=== PATIENT | male | born 1980 | race Caucasian/White ===

== ENCOUNTER 2017-09-30 13:45 | Emergency (ER) | payer BC ==
[~2017-09-30] VITALS: Ht 172.7 cm; Wt 100.0 kg
[2017-09-30 14:29] VITALS: BP 128/92; PULSE 131; RESP 18; TEMP 98.4; O2SAT 96
[2017-09-30 16:44] LABS: BACTERIA, URINE RARE /hpf; BILIRUBIN, URINE NEG (NEG); BLOOD, URINE TRACE (NEG); GLUCOSE,URINE NEG (NEG); HYALINE CAST, URINE 5 /lpf (RARE); KETONE, URINE 40 mg/dL (NEG); MUCUS URINE FEW /lpf (OCC); NITRITE,URINE NEG (NEG); PH, URINE 5.5 (5.0-8.5); URINE COLOR YELLOW (YELLW/STRAW); URINE LEUKOCYTE ESTERASE NEG (NEG)
[2017-09-30 18:57] VITALS: BP 135/82; PULSE 120; RESP 17; O2SAT 98
[2017-09-30] MEDS ORDERED: SODIUM CHLOR 0.9% 1000 ML INJ 1,000 ML IV ONE (19:30)
[2017-09-30] MEDS ORDERED: ONDANSETRON HCL 4 MG/2 ML VIAL IV ONE (19:30)
[2017-09-30] MEDS ORDERED: LORazepam 2 MG/ML VIAL IV PUSH ONE (19:30)
--- NOTE | 2017-09-30 19:30 | PD ---
HPI Chief Complaint: Alcohol/Drug Intoxication Time Seen by Provider: 18:43 Travel History International Travel<30 days: No Contact w/Intl Traveler<30days: No Traveled to known affect area: No History of Present Illness HPI This patient is an alcohol binger about once a week. He does not drink every day. He is trying to cut back. He also takes Valium twice a day for the last month for anxiety prescribed by his physician. He feels nauseous and shaky. Severity is moderate. Duration 2 days. No alleviating factors. Symptoms exacerbated by his anxiety and alcohol abuse. Denies illicit drug use or any intentional overdose. He is not feeling suicidal. PFS Past Medical History Atrial Fibrillation: Yes Anxiety: Yes Depression: Yes Diminished Hearing: No Hypertension: Yes ?: Not Past Surgical History Surgical History: No Previous Surgery Social History Alcohol Use: Yes (last drink 1100) Tobacco Use: Yes (dip) Substance Use: No Allergies-Medications (Allergen,Severity, Reaction): Coded Allergies: azithromycin (Verified Allergy, Unknown, Anaphylaxis, 09/30/17) Review of Systems General / Constitutional: No: Fever Eyes: No: Visual changes HENT: No: Headaches Cardiovascular: Positive: Tachycardia, No: Chest Pain or Discomfort Respiratory: No: Shortness of Breath Gastrointestinal: No: Abdominal Pain Genitourinary: No: Dysuria Musculoskeletal: Positive: Weakness, No: Pain Skin: No Rash Neurologic: Positive: Weakness, Tremor Psychiatric: Positive: Anxiety, No: Depression Endocrine: No: Polydipsia Hematologic/Lymphatic: No: Easy Bruising Physical Exam Narrative GENERAL: Well-nourished, well-developed patient with nausea and weakness . SKIN: Focused skin assessment reveals no rash and nodules. Skin is Warm and dry. HEAD: Atraumatic. Normocephalic. EYES: Pupils equal and round. No scleral icterus. No injection or drainage. ENT: No nasal bleeding or discharge. Mucous membranes pink and moist. NECK: Trachea midline. No JVD. CARDIOVASCULAR: Regular rate and rhythm. No murmur appreciated. Tachycardic at 120 RESPIRATORY: No accessory muscle use. Clear to auscultation. Breath sounds equal bilaterally. GASTROINTESTINAL: Abdomen soft, non-tender, nondistended. Hepatic and splenic margins not palpable. MUSCULOSKELETAL: No obvious deformities. No clubbing. No cyanosis. No edema. NEUROLOGICAL: Awake and alert. No obvious cranial nerve deficits. Motor grossly within normal limits. Normal speech. PSYCHIATRIC: Anxious mood and affect; insight and judgment seems weak . Data Data Last Documented VS Vital Signs Date Time Temp Pulse Resp B/P (MAP) Pulse Ox O2 Delivery O2 Flow Rate FiO2 09/30/17 18:57 120 17 135/82 (99) 98 Room Air 09/30/17 14:29 98.4 Orders Orders Electrocardiogram (09/30/17 14:33) Complete Blood Count With Diff (09/30/17 14:33) Comprehensive Metabolic Panel (09/30/17 14:33) Urinalysis - C+S If Indicated (09/30/17 14:33) Drug Screen, Random Urine (09/30/17 14:33) Alcohol (Ethanol) (09/30/17 14:33) Ondansetron Inj (Zofran Inj) (09/30/17 19:30) Sodium Chlor 0.9% 1000 Ml Inj (Ns 1000 M (09/30/17 19:30) Lorazepam Inj (Ativan Inj) (09/30/17 19:30) Labs Laboratory Tests Test 09/30/17 15:54 09/30/17 19:20 Urine Color YELLOW Urine Turbidity CLEAR Urine pH 5.5 Urine Specific Red Level 1.025 Urine Protein 100 mg/dL Urine Glucose (UA) NEG mg/dL Urine Ketones 40 mg/dL Urine Occult Blood TRACE Urine Nitrite NEG Urine Bilirubin NEG Urine Urobilinogen LESS THAN 2.0 MG/DL Urine Leukocyte Esterase NEG Urine RBC 6 /hpf Urine WBC 2 /hpf Urine Bacteria RARE /hpf Urine Hyaline Casts 5 /lpf Urine Mucus FEW /lpf Microscopic Urinalysis Comment CULT NOT INDICATED Urine Opiates Screen NEG Urine Barbiturates Screen NEG Urine Amphetamines Screen NEG Urine Benzodiazepines Screen POS Urine Cocaine Screen NEG Urine Cannabinoids Screen NEG White Blood Count 8.7 TH/MM3 Red Blood Count 5.80 MIL/MM3 Hemoglobin 16.5 GM/DL Hematocrit 49.6 % Mean Corpuscular Volume 85.5 FL Mean Corpuscular Hemoglobin 28.5 PG Mean Corpuscular Hemoglobin Concent 33.4 % Red Cell Distribution Width 14.7 % Platelet Count 390 TH/MM3 Mean Platelet Volume 7.3 FL Neutrophils (%) (Auto) 63.3 % Lymphocytes (%) (Auto) 25.1 % Monocytes (%) (Auto) 10.9 % Eosinophils (%) (Auto) 0.3 % Basophils (%) (Auto) 0.4 % Neutrophils # (Auto) 5.5 TH/MM3 Lymphocytes # (Auto) 2.2 TH/MM3 Monocytes # (Auto) 0.9 TH/MM3 Eosinophils # (Auto) 0.0 TH/MM3 Basophils # (Auto) 0.0 TH/MM3 CBC Comment DIFF FINAL Differential Comment Blood Urea Nitrogen 16 MG/DL Creatinine 1.49 MG/DL Random Glucose 84 MG/DL Total Protein 8.1 GM/DL Albumin 4.4 GM/DL Calcium Level 9.0 MG/DL Alkaline Phosphatase 87 U/L Aspartate Amino Transf (AST/SGOT) 43 U/L Alanine Aminotransferase (ALT/SGPT) 60 U/L Total Bilirubin 0.8 MG/DL Sodium Level 138 MEQ/L Potassium Level 4.5 MEQ/L Chloride Level 101 MEQ/L Carbon Dioxide Level 18.4 MEQ/L Anion Gap 19 MEQ/L Estimat Glomerular Filtration Rate 53 ML/MIN Ethyl Alcohol Level 134 MG/DL [facility] Medical Decision Making Medical Screen Exam Complete: Yes Emergency Medical Condition: Yes Medical Record Reviewed: Yes Differential Diagnosis Valium withdrawal, alcohol withdrawal, alcohol intoxication, anxiety attack Narrative Course I have reviewed the patient's electronic medical record. IV placed and IV Zofran and IV Ativan and 1 L normal saline IV bolus given Lab studies sent Urine is clean Urine tox screen positive for benzodiazepine which he is prescribed Alcohol level is 134 CBC normal and electrolytes normal On recheck he looks improved Stable for outpatient follow-up He is acutely intoxicated but I do not believe he is in withdrawal Gave him a recommendation for [facility] outpatient alcohol rehabilitation services Diagnosis Primary Impression: Acute alcohol intoxication with alcoholism Qualified Codes: F10.229 - Alcohol dependence with intoxication, unspecified Additional Impressions: Anxiety Chronic prescription benzodiazepine use Additional Instructions: The patient was advised to follow up with their physician and return if they worsen. Discuss long-term wean of Valium with your prescribing physician Recommend [facility] alcohol rehabilitation services Med/Other Pt SpecificInfo: Other Disposition: 01 DISCHARGE HOME Condition: Stable Demetrius Vaughn MD Sep 30, 2017 19:30
[2017-09-30 19:36] LABS: AUTOMATED NEUTROPHIL # 5.5 TH/MM3 (1.8-7.7); BASOPHIL % 0.4 % (0.0-2.0); EOSINOPHIL % 0.3 % (0.0-4.0); HEMATOCRIT 49.6 % (39.0-51.0); HEMOGLOBIN 16.5 GM/DL (13.0-17.0); LYMPH % 25.1 % (9.0-44.0); LYMPHOCYTE # 2.2 TH/MM3 (1.0-4.8); MEAN CELL VOLUME 85.5 FL (80.0-100.0); MEAN CORPUSCULAR HEMOGLOBIN 28.5 PG (27.0-34.0); MEAN CORPUSCULAR HGB CONC 33.4 % (32.0-36.0); MEAN PLATELET VOLUME 7.3 FL (7.0-11.0); MONO % 10.9 % (0.0-8.0); MONOCYTE # 0.9 TH/MM3 (0-0.9); NEUT % 63.3 % (16.0-70.0); PLATELET COUNT 390 TH/MM3 (150-450); RED CELL DISTRIBUTION WIDTH 14.7 % (11.6-17.2); WHITE BLOOD COUNT 8.7 TH/MM3 (4.0-11.0)
[2017-09-30 19:56] LABS: ALT (GPT) 60 U/L (12-78)
[2017-09-30 19:59] LABS: ALKALINE PHOSPHATASE 87 U/L (45-117); TOTAL BILIRUBIN ADULT 0.8 MG/DL (0.2-1.0); TOTAL PROTEIN 8.1 GM/DL (6.4-8.2)
[2017-09-30 20:05] LABS: ALBUMIN 4.4 GM/DL (3.4-5.0); AST (GOT) 43 U/L (15-37); BICARBONATE 18.4 MEQ/L (21.0-32.0); BLOOD UREA NITROGEN 16 MG/DL (7-18); CHLORIDE 101 MEQ/L (98-107); CREATININE 1.49 MG/DL (0.60-1.30); GLOMERULAR FILTRATION RATE 53 ML/MIN (>89); GLUCOSE,RANDOM 84 MG/DL (74-106); SODIUM (NA) 138 MEQ/L (136-145)
--- NOTE | 2017-10-01 19:31 | EKG ---
Date Performed: 09/30/2017 Time Performed: 15:35:08 PTAGE: 36 years EKG: SINUS TACHYCARDIA WITH SHORT MO INTERVAL SEPTAL MYOCARDIAL INFARCTION ABNORMAL ECG NO PREVIOUS TRACING DOCTOR: Rudy Eastman Interpretating Date/Time 10/01/2017 19:29:07
== END 2017-09-30 21:40 | disposition home or self-care (01) ==
LOC: NEPD 13:45
DX: F10.229 Alcohol dependence with intoxication, unspecified (principal); F41.9 Anxiety disorder, unspecified; Y90.6 Blood alcohol level of 120-199 mg/100 ml; Z79.899 Other long term (current) drug therapy
CPT/HCPCS: 80053; 80307; 81001; 85025; 93005; 96374; 96375; 99284; J2060; J2405; J7030